=== PATIENT | male | born 1995 | race Caucasian/White ===

== ENCOUNTER → 2023-12-08 16:43 | Outpatient (BNVA) | payer SELFPAY | PROVIDERS: Family Provider Family Medicine; PCP Family Medicine; Visit Provider Registered Nurse Neonatal Intensive Care | DX: S61.226A Laceration with foreign body of right little finger without damage to nail, initial encounter (principal); W29.4XXA Contact with nail gun, initial encounter | CPT/HCPCS: 73130 ==